=== PATIENT | female | born 1995 | race Caucasian/White ===

== ENCOUNTER 2018-04-05 18:44 | Emergency (ER) | payer MEDICAID ==
[~2018-04-05] VITALS: Ht 157.5 cm; Wt 72.6 kg
[~2018-04-05 18:44] MED LIST: CRUTCH2 USE; CYCL10 PO; HYDACE5 PO; IBUP800 PO; NAPR500 PO; Naprosyn500 MG PO; Norco 5-325 Ta1 EACH PO; OXYACE5T PO; PROM25 PO; Pepcid40 MG PO; Verotin-Gr Cap1 EACH PO
== END 2018-04-05 20:51 | disposition home or self-care (01) ==
LOC: ER 18:44
DX: K22.8 Other specified diseases of esophagus (principal)
CPT/HCPCS: 36415; 74220; 99284

== ENCOUNTER → 2019-06-14 | Outpatient (CLI) | payer SELFPAY | END | disposition home or self-care (01) | LOC: LAB 09:08 → LAB SHORT 09:08 | DX: R30.0 Dysuria (principal) | CPT/HCPCS: 87077; 87086; 87186 ==

== ENCOUNTER → 2022-08-29 | Outpatient (CLI) | payer SELFPAY ==
[2022-08-29 11:40] LABS: BASOPHILS ABSOLUTE AUTO 0.04 K/mm3 (0.00-0.23); BASOPHILS PERCENT AUTO 1 % (0-2); EOSINOPHILS ABSOLUTE AUTO 0.06 K/mm3 (0.00-0.68); EOSINOPHILS PERCENT AUTO 1 % (0-6); Hematocrit 43.5 % (33.0-51.0); Hemoglobin 14.9 g/dL (11.5-16.0); IMMATURE GRAN ABSOLUTE AUTO 0.02 K/mm3 (0.00-0.10); IMMATURE GRAN PERCENT AUTO 0 % (0-1); LYMPHOCYTES PERCENT AUTO 17 % (21-46); MONOCYTES ABSOLUTE AUTO 0.56 K/mm3 (0.16-1.47); MONOCYTES PERCENT AUTO 7 % (4-13); Mean Corpuscular HGB Conc 34.3 g/dL (31.5-36.5); Mean Corpuscular Volume 88 fL (80-100); Mean Platelet Volume 11.2 fL (9.1-12.4); NEUTROPHILS PERCENT AUTO 74 % (41-73); Platelet Count 202 K/mm3 (150-400); RDW Coefficient Variation 11.6 % (11.7-14.2); RDW Standard Deviation 37.2 fL (35.1-46.3); Red Blood Cell Count 4.97 M/mm3 (3.80-5.20); White Blood Cell Count 7.68 K/mm3 (4.00-11.30)
[2022-08-29 11:56] LABS: Albumin, Blood 4.8 g/dL (3.4-5.0); Albumin/Globulin Ratio 1.3 (0.8-1.8); Bilirubin, Total 0.5 mg/dL (0.1-1.0); Calcium, Blood 9.1 mg/dL (8.5-10.1); Creatinine, Blood 0.61 mg/dL (0.40-1.00); Globulin, Blood 3.7 g/dL (2.2-4.0); Potassium, Blood 3.8 mmol/L (3.5-5.5); Total Protein, Blood 8.5 g/dL (6.4-8.2)
== END | disposition home or self-care (01) ==
LOC: LAB 11:36 → LAB SHORT 11:36
PROVIDERS: Chiropractor
DX: R10.9 Unspecified abdominal pain (principal)
CPT/HCPCS: 80053; 83690; 85025

== ENCOUNTER 2024-12-26 12:54 | Emergency (ER) | payer SELFPAY ==
[~2024-12-26] VITALS: Ht 157.5 cm; Wt 45.4 kg
[2024-12-26] MEDS ORDERED: FentaNYL Citrate 50 MCG/ML 2 ML Injection IV ONE (13:05)
[2024-12-26] MEDS ORDERED: propofoL 20 ML IV SCH (13:15)
[2024-12-26] MEDS ORDERED: NS 1,000 ML IV ONE (13:19)
[2024-12-26] MEDS ORDERED: NAPR500 PO (13:44)
[2024-12-26] MEDS ORDERED: HYDR1TAB94 PO (13:44)
[2024-12-26] MEDS ORDERED: NS 1,000 ML IV SCH (13:45)
[2024-12-26 14:05] VITALS: BP 110/69
== END 2024-12-26 14:09 | disposition home or self-care (01) ==
LOC: ER 12:54
DX: S52.591A Other fractures of lower end of right radius, initial encounter for closed fracture (principal); S52.611A Displaced fracture of right ulna styloid process, initial encounter for closed fracture; W19.XXXA Unspecified fall, initial encounter
CPT/HCPCS: 25605; 73100; 73110; 99152; 99283-25; J2704; J7030

== ENCOUNTER 2024-12-29 12:01 | Day surgery (SDC) | payer SELFPAY ==
[~2024-12-29] VITALS: Ht 157.5 cm; Wt 49.4 kg
[~2024-12-29 12:01] MED LIST changes: +HYDR1TAB94 PO; +Lactated Ringer's 1,000 ML IV ONE
[2024-12-29] MEDS ORDERED: NS 50 ML IV ONE (12:19)
[2024-12-29] MEDS ORDERED: CeFAZolin Sodium 2,000 MG VIAL ONE (12:19)
[2024-12-29] MEDS ORDERED: Bupivacaine HCl 0.25% 30 ML Injection ONE (12:26)
[2024-12-29] MEDS ORDERED: Dexamethasone Sod Phos 10 MG/ML 1ML VIAL ONE (12:26)
[2024-12-29] MEDS ORDERED: Dexmedetomidine HCL 200 MCG / 2 ML ONE (12:27)
[2024-12-29] MEDS ORDERED: Lactated Ringer's 1,000 ML IV ONE (12:36)
[2024-12-29] MEDS ORDERED: FentaNYL Citrate 50 MCG/ML 2 ML Injection ONE (12:49)
[2024-12-29] MEDS ORDERED: Midazolam HCl 1MG / ML 2ML Vial ONE (12:49)
[2024-12-29] MEDS ORDERED: Scopolamine Hydrobromide Patch ONE (12:57)
[2024-12-29] MEDS ORDERED: propofoL 20 ML IV ONE ×2 (13:15)
--- NOTE | 2024-12-29 13:19 | NUR ---
12/29/24 1319 Doris Marin BLOCK IN PREOP STARTED AT 1308. T/O AT 1305. BLOCK END AT 1313. PT TOLERATED WELL.
[2024-12-29] MEDS ORDERED: ePHEDrine Sulfate 50 MG/ML 1ML Injection ONE (13:25)
--- NOTE | 2024-12-29 14:16 | NUR ---
12/29/24 1416 Sierra Riley PT REMAINS UNRESPONSIVE TO VERBAL STIMULI. DR. BEGUM REMAINS AT BEDSIDE UNTIL PT ROUSES TO VOICE. VSS, ON RA.
--- NOTE | 2024-12-29 14:28 | NUR ---
12/29/24 1428 Sierra Riley PT TRANSFERS TO SDU A&OX4, DENYING PAIN/NAUSEA. VSS, ON RA. PT STATES READINESS FOR PO LIQUIDS. PT HAS NO SENSATION OR MOVEMENT TO RUE D/T BLOCK. CAP REFILL <2 SECS. NO VISIBLE SIGNS OF DISTRESS NOTED.
[2024-12-29 14:29] VITALS: BP 122/58
== END 2024-12-29 15:00 | disposition home or self-care (01) ==
LOC: ORSCSDS 12:01
PROVIDERS: Orthopaedic Surgery
PROC: 0PSH04Z Reposition Right Radius with Internal Fixation Device, Open Approach (ICD-10-PCS; principal; 2024-12-29 13:30)
DX: S52.501A Unspecified fracture of the lower end of right radius, initial encounter for closed fracture (principal)
CPT/HCPCS: A9270; C1713; J0690; J1100; J2250; J2704; J3010; J7120